=== PATIENT | female | born 1985 | race Caucasian/White ===

== ENCOUNTER 2023-12-06 18:20 | Emergency (ER) | payer MEDICAID ==
[~2023-12-06] VITALS: Ht 170.2 cm; Wt 49.0 kg
[2023-12-06 20:42] LABS: *URINE HCG, QUAL POSITIVE (NEGATIVE)
[2023-12-06 22:43] VITALS: BP 138/75; TEMP 97.8; O2SAT 99
== END 2023-12-06 22:43 | disposition home or self-care (01) ==
LOC: ER 18:21
DX: S80.12XA Contusion of left lower leg, initial encounter (principal); R10.2 Pelvic and perineal pain; V89.2XXA Person injured in unspecified motor-vehicle accident, traffic, initial encounter; Y93.89 Activity, other specified; Y92.89 Other specified places as the place of occurrence of the external cause; Y99.8 Other external cause status
CPT/HCPCS: 36415; 71045; 73130; 73590; 84703; A4606; A4663